=== PATIENT | male | born 1930 | race Caucasian/White ===

== ENCOUNTER 2016-10-02 13:00 | Inpatient (IN) | payer MEDICARE, BC ==
[~2016-10-02] VITALS: Ht 170.2 cm; Wt 75.5 kg
--- NOTE | ~2016-10-02 | OR ---
PATIENT'S NAME: RONALD LOPEZ [facility] AGE: 86 Y [address] ROOM: [place] [address] LOCATION: GPCU ADMIT DATE: 10/02/2016 OR/Procedure Report DISCHARGE DATE: 10/04/2016 FAMILY PHYSICIAN: LILLI RODRIGUEZ ATTENDING PHYSICIAN: Marcelo August SURGEON: Kareem Lauren MD BOXING INSTRUCTOR: DATE OF PROCEDURE: 10/02/2016 PROCEDURE: Left-sided thoracentesis. INDICATIONS FOR PROCEDURE: Left-sided pleural effusion. The risks and benefits of the procedure were discussed with the patient including risks of bleeding, infection, and pneumothorax. He agrees to proceed. DESCRIPTION OF PROCEDURE: After an informed consent, proper time-out was called by me and the nursing staff. The left chest ultrasound was done by me. The area for appropriate needle insertion was marked on the skin. After that, the area was prepped and draped in the usual fashion. The area was infiltrated with 1% lidocaine. After that, a 0.5 cm incision was made vertically in the skin. The thoracentesis needle was used to invade the pleural space. 700 mL of serosanguineous fluid were obtained. There were no immediate complications. The patient tolerated the procedure well. Chest x- ray postprocedure did not reveal any pneumothorax or acute complications. Thank you for allowing me to participate in the care of this patient. MD ARDEN WITT/logan /[id number] d: 10/28/[id number] t: 11/01/16 1813, OPERATIVE SUMMARY
--- NOTE | ~2016-10-02 | DS ---
PATIENT'S NAME: RONALD LOPEZ [facility] AGE: 86 Y [address] ROOM: [place] [address] LOCATION: GPCU ADMIT DATE: 10/02/2016 Discharge Summary DISCHARGE DATE: 10/04/2016 FAMILY PHYSICIAN: LILLI RODRIGUEZ ATTENDING PHYSICIAN: Marcelo August PRIMARY DIAGNOSES: 1. Left pleural effusion, malignant. 2. Acute hypoxic respiratory failure. 3. Essential hypertension. 4. Prostate cancer, status post radiation. 5. Osteoarthritis, generalized. OPERATIONS AND PROCEDURES: Left thoracentesis was performed by Dr. Lauren on 10/02/2016. HISTORY OF PRESENTING ILLNESS/REASON FOR ADMISSION: Please refer to the H and P dictated on 10/02/2016. HOSPITAL COURSE: The patient was admitted to the hospital as noted above with a presumptive diagnosis of left pleural effusion and acute hypoxic respiratory failure. He was seen and evaluated in coordination with Pulmonology, Dr. Lauren. It was recommended to undergo left thoracentesis. This was performed and pleural fluid was submitted for evaluation including cell count, cytology, and cultures. There was a clinical evidence for left lung consolidation. He did receive broad-spectrum antibiotic therapy. He did not demonstrate fever or any other stigmata of infection. He remained clinically stable and oxygen was eventually weaned off. He was tolerating a regular diet and ambulating in the room independently. By the third hospital day, pleural fluid cytology did reveal adenocarcinoma. Although there had been preparation for bronchoscopy, it was decided not to perform this but rather to seek Oncology evaluation. The patient was seen and evaluated by the oncologist here and recommended for outpatient followup. By the end of the day on 10/04/2016, it was felt he would be stable enough for discharge to home with plans for close clinical followup with his primary care provider as well as outpatient followup with Hematology/Oncology. DISCHARGE INSTRUCTIONS: Diet: Regular as tolerated. Activity: As tolerated. MEDICATIONS: PATIENT'S NAME: JESSICA [facility] AGE: 86 Y [address] ROOM: [place] [address] LOCATION: GPCU ADMIT DATE: 10/02/2016 Discharge Summary DISCHARGE DATE: 10/04/2016 FAMILY PHYSICIAN: LILLI RODRIGUEZ ATTENDING PHYSICIAN: Khalid,Robertson A 1. Losartan 100 mg p.o. daily. 2. Acetaminophen 650 mg p.o. q.6 hours p.r.n. 3. Advil PM 1 tablet p.o. q.h.s. p.r.n. 4. Salonpas gel, apply topically daily p.r.n. arthritis pain. FOLLOWUP: He will follow up with Hematology/Oncology in 5-7 days. Follow up with primary care provider, Lilli Rodriguez, in 3-5 days. CONDITION ON DISCHARGE: Fair. Total time spent on discharge process, 35 minutes. MD CLAUDE DURAN/logan /[id number] d: 10/06/16 0237 t: 10/17/16 1726, DISCHARGE SUMMARY
--- NOTE | ~2016-10-02 | CON ---
PATIENT'S NAME: RONALD BETHEA [facility] AGE: 86 Y [address] ROOM: [address] [place], [place] [address] LOCATION: GPCU ADMIT DATE: 10/02/2016 Consultation DISCHARGE DATE: 10/04/2016 FAMILY PHYSICIAN: LILLI RODRIGUEZ ATTENDING PHYSICIAN: Marcelo August DATE OF CONSULTATION: 10/04/2016 REFERRING PHYSICIAN: Kareem Lauren MD CHIEF COMPLAINT: Asked to evaluate patient with new diagnosis of adenocarcinoma, diagnosed from pleural fluid. HISTORY OF PRESENT ILLNESS: Ronald Bethea is an 86-year-old gentleman, who previously has been enjoying golf routinely up until approximately 3 to 4 weeks ago. At which point, he started decreasing his activities because he became more fatigued and short of breath, some chest pressure or tightness; and because this was prompted to be seen by his local physician, who performed a D-dimer, this was elevated and so a CT scan angiogram was performed on 09/19/2016, which did not demonstrate a pulmonary embolism, but did demonstrate a small to moderate left pleural effusion and possible adenopathy in the right hilar area, suggestion for outpatient pulmonary evaluation and bronchoscopy was considered, however, before that could occur the patient developed increasing shortness of breath, prompting evaluation and treatment and transferred to [facility] on 10/02/2016. At which time, a thoracentesis was performed with significant improvement in his breathing. He had been started on antibiotics and since the pathology has come back demonstrating malignancy consistent with adenocarcinoma. Currently, the patient is feeling well and wanted to the leave the hospital, and as he lives close to [place], [place], has considered being seen there for evaluation and treatment. He is not sure he wants therapy, but was open to hearing about the options available. The patient denies any significant complaints currently. No cough or phlegm production. No significant shortness of breath. Currently, his energy level is improved with the thoracentesis and he is looking forward to watching the [employer] game this evening and curious to what channel this would be on. He does live with his and together they have been maintaining and managing quite well. He has not had any fevers or chills. No GI symptoms. He has been eating and drinking well without significant weight loss. PAST MEDICAL HISTORY: Includes: 1. Osteoarthritis. 2. Hypertension. 3. Prostate cancer, diagnosed in 2007 status post radiation therapy for PATIENT'S NAME: RONALD BETHEA [facility] AGE: 86 Y [address] ROOM: [address] [place], [place] [address] LOCATION: GPCU ADMIT DATE: 10/02/2016 Consultation DISCHARGE DATE: 10/04/2016 FAMILY PHYSICIAN: LILLI RODRIGUEZ ATTENDING PHYSICIAN: Marcelo August that, had a PSA, has been well controlled since then by his report. 4. Carpal tunnel surgery in the past. 5. Cataract surgery in 2004. 6. He had a history DVT. 7. He had a degenerative disease of the knees. 8. He had hernia surgery in 1992. HOME MEDICATIONS: Include: 1. Losartan 5 mg daily. 2. Ibuprofen as needed. 3. Salonpas gel. SOCIAL HISTORY: The patient did smoke for 37 years, quit approximately 35 years ago. Does not drink significant alcohol. He is retired and lives with his at their home approximately 30 minutes from [place], [place]. FAMILY HISTORY: The patient has no cancer in the family. REVIEW OF SYSTEMS: Per history of present illness; otherwise, unremarkable or negative in detail. PHYSICAL EXAMINATION: GENERAL: The patient appears quite comfortable. No apparent distress. Conversant. Alert and oriented and accompanied by his . HEENT: Pupils were equal, round, reactive to light. Extraocular muscles are intact. Oral mucosa is pink without erythema and without lesions. It is dry. NECK: Without adenopathy as was the axillary region. HEART: Regular rate and rhythm without murmurs appreciated. LUNGS: Clear to auscultation without wheezing and without rhonchi. Good air movement in both lung singleton. ABDOMEN: Bowel sounds positive. Nontender. No organomegaly or masses appreciated. EXTREMITIES: Without cyanosis, clubbing, or edema. No rash. IMPRESSION AND PLAN: Ronald Bethea is an 86-year-old gentleman with a new diagnosis of adenocarcinoma, diagnosed from a thoracentesis with CT findings suggesting adenopathy; however, nothing otherwise suggested. Currently after the thoracentesis, he was feeling better and wishing to go home for consideration of ongoing evaluation and treatment as an outpatient near [place], [place]. 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 ROOM: [address] [place], [place] [address] LOCATION: GPCU ADMIT DATE: 10/02/2016 Consultation DISCHARGE DATE: 10/04/2016 FAMILY PHYSICIAN: LILLI RODRIGUEZ ATTENDING PHYSICIAN: Marcelo August A could include standard chemotherapy with a dose reduction or potentially immunotherapy or targeted therapy depending on further path review. I will ask to see if we have pleural fluid to send off for FoundationOne testing and PD-L1 testing, which may help with treatment considerations as there maybe a couple of easy options if his tumor would appear a certain way. If there is no fluid available to send out, then further testing could be considered, particularly as I expect he will need further thoracentesis in the future. It would be good at that time to send the FoundationOne testing and PD-L1 testing for not able to do it now. Additionally, I will arrange for a PET scan to further stage him completely, although this may not affect treatment strategies to help get a baseline for ongoing followup. Upon discharge, we will try to help establish care in [place], [place], so that the further evaluation and treatment discussion can occur, but I do expect that repeat thoracentesis may be needed. Even a PleurX catheter may be of benefit in the future. MD MAGDALENO DICKSON/logan /[id number] d: 10/06/16904 t: 10/19/16 1101, CONSULTATION REPORT
--- NOTE | ~2016-10-02 | ECHO ---
Transthoracic Echocardiography Report (TTE) Demographics Patient Name RONALD LOPEZ Date of Study 10/03/2016 Patient Number [id number] Visit Number [id number] Date of 1930 Room Number [address] Gender Male Number Age 86 year(s) Referring Mariangel Encarnacion Multigrapher Daniela Ferro, Physician RT,RVT,RDCS Physician Interpreting Silvia Murillo Routing Clerk Physician Sydnie MCCRACKEN Supervising Ordering Mariangel Encarnacion MD/MLP Physician MD Nurse Stress Inspector Fuel Hose Conclusions Contractility Score Summary Summary The estimated left ventricular ejection fraction is 45-50%. Moderate to severe concentric left ventricular hypertrophy. Inferior hypokinesis. Apical hypokinesis. There is mild to moderate aortic stenosis by the Continuity Equation. The peak velocity is 2.2 m/s, the mean gradient is 11 mmHg, and the valve area based on the continuity equation is 1.1 cm2, stroke volume index is 62 ml/m2. There is moderate pulmonary hypertension. The pulmonary pressure (RVSP) is 49 mmHg. Moderate tricuspid regurgitation . Small posterior pericardial effusion. The ascending aorta appears mildly dilated. The maximum diameter measures 4.0 cm. IVC is mildly dilated. Procedure Type of Study TTE procedure:2D Echocardiogram, M-Mode, Doppler , Color Doppler. Procedure Date Date: 10/03/2016 Start: 08:13 AM Study Location: Inpatient Portable Technical Quality: Adequate visualization Indications:Heart murmur. Additional Indications:Respiratory failure. Appropriate Use Criteria: 9 Patient Status: Routine HR: 59 bpm BP: 228/95 mmHg M-Mode/2D Measurements LV Diastolic Dimension: 4.04 cm LV Systolic Dimension: 2.7 cm LV Septum Diastolic: 1.59 cm LV PW Diastolic: 1.62 cm AO Root Dimension: 4 cm Cardiac Output: 3.64 l/min AV Cusp Separation: 0.7 cm RV Diastolic Dimension: 3.02 cm LA volume: 67 ml MV EPSS: 0.8 cm LVOT: 2.1 cm RV Base: 4 cm LVOT VTI: 17.8 cm RV Mid: 3.5 cm LV Stroke volume: 61.62 ml TAPSE: 2.3 cm Doppler Measurements AV Peak Velocity: 2.43 m/s MV Peak E-Wave: 0.73 m/s AV Peak Gradient: 23.62 mmHg MV Peak A-Wave: 0.79 m/s AV Mean Gradient: 11 mmHg MV E/A Ratio: 0.93 LVOT Peak Velocity: 0.75 m/s MV P1/2t: 98 msec TR Gradient:39.94 mmHg PV Peak Velocity: 0.87 m/s Estimated RAP:10 mmHg PV Peak Gradient: 3.01 mmHg Estimated RVSP: 50 mmHg Estimated PASP: 49.94 mmHg E' Septal Velocity: 0.08 m/s A' Septal Velocity: 0.12 m/s MV E/E' Ratio: 9.5 Findings Left Ventricle Moderate to severe concentric left ventricular hypertrophy. Inferior hypokinesis. Apical hypokinesis. Right Ventricle Normal right ventricle structure and function. Left Atrium The left atrium is mildly dilated by LA volume index measurement. Right Atrium The right atrium is mildly dilated. Mitral Valve Normal mitral valve structure and function. Aortic Valve There is mild to moderate aortic stenosis by the Continuity Equation. The peak velocity is 2.2 m/s, the mean gradient is 11 mmHg, and the valve area based on the continuity equation is 1.1 cm2, stroke volume index is 62 ml/m2. Tricuspid Valve There is moderate pulmonary hypertension. The pulmonary pressure (RVSP) is 49 mmHg. Moderate tricuspid regurgitation . Pulmonic Valve Normal pulmonic valve structure and function. Pericardial Effusion Small posterior pericardial effusion. Miscellaneous The ascending aorta appears mildly dilated. The maximum diameter measures 4.0 cm. IVC is mildly dilated. Pleural Effusion No evidence of pleural effusion. Signature dtt: Tim Vega dtd: 10/03/16 0813 Physician Self Edit
--- NOTE | ~2016-10-02 | HP ---
PATIENT'S NAME: JESSICA [facility] AGE: 86 Y [address] ROOM: [address] [address] [facility] ADMIT DATE: 10/02/2016 History & Physical DISCHARGE DATE: FAMILY PHYSICIAN: PHYSICIAN, UNKNOWN ATTENDING PHYSICIAN: LUCIEN COMER DATE OF SERVICE: CHIEF COMPLAINT: "Not feeling right." HISTORY OF PRESENT ILLNESS: An 86-year-old very pleasant, generally healthy gentleman with past medical history of hypertension, controlled with losartan at home, started feeling fatigued for past 2 weeks. He ended up in primary care physician's office with some vague chest pain and D-dimers were done, which resulted in getting a CTA of the chest at that point. CTA of the chest scan at that point showed no thromboembolic disease, [id number] left pleural effusion, and significant left lower lobe atelectasis and attenuation of the bronchi subtending to the left lower lobe, soft tissue attenuation suggesting adenopathy and probable right hilar adenopathy as well. Multinodular villus of the lungs with a nodularity of less than 1 cm, which does raise the concern for metastatic disease and they recommended bronchoscopy assessment. He later after 2 weeks ended up in the emergency department in [facility] with worsening of his symptoms in terms of fatigue and again chest x-ray was done, which did show left lower lobe consolidation as well as pleural effusion and was transferred here. On my encounter, he seems pretty comfortable. He is saying that he is just "ran out of energy." On specific inquiry, he denied having any shortness of breath, any cough, any sputum production, any chest pain, any palpitations, any headache, any dizziness, any trouble with the eyes, any decrease in appetite, any weight loss, any trouble with swallowing, any abdominal pain, any constipation, change in caliber of stools, any change in color of stools, any burning on urination, any extremity swelling. He further declined any PND, orthopnea, or dyspnea. REVIEW OF SYSTEMS: All other systems reviewed and were negative except as mentioned in the HPI. ALLERGIES: NO KNOWN DRUG ALLERGIES. PAST MEDICAL HISTORY: Osteoarthritis, hypertension, history of prostate cancer status post radiation. PATIENT'S NAME: JESSICA [facility] AGE: 86 Y [address] ROOM: [address] [address] LOCATION: GPCU ADMIT DATE: 10/02/2016 History & Physical DISCHARGE DATE: FAMILY PHYSICIAN: PHYSICIAN, UNKNOWN ATTENDING PHYSICIAN: LUCIEN COMER MEDICATIONS: 1. Aleve. 2. Losartan 25 mg once daily. SOCIAL HISTORY: Smoked for 37 years, one pack per day while in the [place]. He has not smoked for the last 35 years. Retired. Physical activity: Pretty good before last 2 weeks. FAMILY HISTORY: Family history is negative for any cancer, any hypertension, coronary artery disease, or stroke. PHYSICAL EXAMINATION: VITAL SIGNS: Blood pressure 180/97, 92, 94% on 2 L of oxygen, respiratory rate of 20. GENERAL: No acute distress, alert and oriented x3. HEENT: Head: Atraumatic, normocephalic. Eyes: Nonicteric. No pallor. Oropharynx: Moist mucous membranes. CARDIOVASCULAR: S1, S2, loud, systolic ejection murmur grade 3 x 6 radiating to the carotids. LUNGS: Left lower lobe crepitations with expiratory wheezes. ABDOMEN: Soft, nontender, nondistended. Bowel sounds are present. EXTREMITIES: No clubbing, cyanosis, or edema. PSYCH: Normal affect, mood, and speech. NEURO: Cranial nerves 2 through 12 intact. No motor or sensory deficit noted. LABORATORY DATA: Lab work from the outside facility were significant for white count of 12, hemoglobin of 13. Sodium 146, potassium 3.9, chloride 109, bicarb of 24, BUN 17, creatinine 0.9, glucose of 100. CAT scan of the chest, which was 2 weeks ago, per HPI. A chest x-ray done today showed left lower lobe consolidation as well as the left pleural effusion. Procalcitonin done was negative for sepsis. ABG done showed pH of 7.44, pCO2 of 37, PO2 of 68, saturating 94% on 2 L of oxygen. ASSESSMENT: 1. Acute hypoxic respiratory failure. 2. Left-sided pleural effusion. 3. Left lower lobe consolidation. 4. Hypertension. 5. Arthritis. 6. History of prostate cancer. PATIENT'S NAME: RONALD LOPEZ [facility] AGE: 86 Y [address] ROOM: [address] [address] LOCATION: GPCU ADMIT DATE: 10/02/2016 History & Physical DISCHARGE DATE: FAMILY PHYSICIAN: PHYSICIAN, UNKNOWN ATTENDING PHYSICIAN: LUCIEN COMER PLAN: We are going to treat him with supplemental oxygen at this point. Pulmonary consult has been requested. On ultrasonography on the bedside, it does show pleural effusion on the left side, will need to be tapped. Bronchoscopy evaluation per Pulmonary. We are going to get sputum cultures and sent the urine for urine Legionella as well as streptococcal antigen. It just could be community-acquired pneumonia, which got untreated, but he is surprisingly stable from that standpoint. We will obtain blood cultures as well. Obtain echocardiography with this cardiac murmur as well. We will leave the decision of starting antibiotics to the Pulmonary at this point. No DVT prophylaxis at this point except SCDs. N.p.o. midnight. MD HERMAN TEJEDA/logan /[id number] D: 047 T: 929 HISTORY & PHYSICAL
--- NOTE | ~2016-10-02 | CON ---
PATIENT'S NAME: [facility] AGE: 86 Y [address] ROOM: [place] [address] LOCATION: GPCU ADMIT DATE: 10/02/2016 Consultation DISCHARGE DATE: 10/04/2016 FAMILY PHYSICIAN: LILLI RODRIGUEZ ATTENDING PHYSICIAN: Marcelo August DATE OF CONSULTATION: 10/02/2016 REFERRING PHYSICIAN: Kareem Lauren MD REASON FOR CONSULTATION: Pleural effusion. HISTORY OF PRESENTING ILLNESS: This is an 86-year-old gentleman with a past medical history of hypertension controlled with losartan at home. He started feeling fatigued for the past 2 weeks, he ended up in the primary care physician's office with some vague chest pain, D-dimer were done, which resulted in getting a CT of the chest. CTA of the chest done at that point showed to be no thromboembolic disease. There is [id number] left pleural effusion and significant left lower lobe atelectasis and attenuation of the bronchi and a soft tissue attenuation suggesting adenopathy and probable right hilar adenopathy and possible mass. There is multiple nodules on the lung singleton, which is suspicious for malignancy. After 2 weeks, he ended up in the emergency department in [place] with worsening of his symptoms in terms of fatigue and chest x-ray which did show a left lower lobe consolidation as well as pleural effusion and was transferred to [facility]. The patient does have a history of prostate cancer. The patient denied any hemoptysis, pleurisy, he had denied any diarrhea, constipation, nausea, vomiting, or abdominal pain. REVIEW OF SYSTEMS: A 10-point review of system was done and otherwise negative other than mentioned in the history of presenting illness. ALLERGIES: NO KNOWN DRUG ALLERGIES. PAST MEDICAL HISTORY: Includes: 1. Osteoarthritis. 2. Hypertension. PATIENT'S NAME: [facility] AGE: 86 Y [address] ROOM: [place] [address] LOCATION: GPCU ADMIT DATE: 10/02/2016 Consultation DISCHARGE DATE: 10/04/2016 FAMILY PHYSICIAN: LILLI RODRIGUEZ ATTENDING PHYSICIAN: Marcelo August 3. History of prostate cancer, status post radiation. MEDICATIONS: 1. Aleve. 2. Losartan 5 mg once daily. SOCIAL HISTORY: The patient smoked for 37 years 1 pack per day. While in the [place], he has not smoked for the last 35 years. Retired. Physical activity pretty good before the last 2 weeks. FAMILY HISTORY: Negative for any cancer, hypertension, coronary artery disease, or stroke. PHYSICAL EXAMINATION: GENERAL: Upon initial evaluation, the patient was lying in bed, comfortable, does not appear in acute distress. HEENT: Eyes are nonicteric. Pupils are equal, reactive to light, and accommodation. HEENT: Normocephalic, atraumatic. Wet mucous membranes. Mallampati score is 2. NECK: Supple. No lymphadenopathy. No jugular venous distention. LUNGS: Left lower lobe crepitations with expiratory wheeze, there is dullness to percussion at the left hemithorax. ABDOMEN: Soft, nontender, no palpable organs. Positive bowel sounds. EXTREMITIES: No clubbing, cyanosis, or edema. NEURO: Cranial nerves 2 through 12 are intact. No motor or sensory deficit noted. LABORATORY DATA: At the time of evaluation, the lab from the outside facility were significant for white count of 12, hemoglobin of 13, his sodium was 146, potassium is 3.9, chloride 109, bicarbonate 24, BUN of 17, creatinine 0.9, and glucose of 100. CT scan of the chest which was 2 weeks ago per HPI, a chest x-ray done today showed left lower lobe consolidation as well as left pleural effusion. Procalcitonin was done was negative and not consistent with sepsis. ABG showed the pH 7.44, pCO2 of 27, pO2 of 68, and saturating 94% on 2 L. IMPRESSION: 1. Acute hypoxic respiratory failure. 2. Left-sided pleural effusion, possible left hilar adenopathy and possible mass. 3. Hypertension. RECOMMENDATION: PATIENT'S NAME: RONALD LOPEZ [facility] AGE: 86 Y [address] ROOM: [place] [address] LOCATION: GPCU ADMIT DATE: 10/02/2016 Consultation DISCHARGE DATE: 10/04/2016 FAMILY PHYSICIAN: LILLI RODRIGUEZ ATTENDING PHYSICIAN: Marcelo August At the current point, given the patient's lymphadenopathy and the left-sided pleural effusion, this could be secondary to malignancy; at the current point, we will proceed with thoracentesis, risks and benefits of the procedure were discussed with the patient. If the thoracentesis does not reveal any abnormalities then proceed with bronchoscopy and then the endobronchial ultrasound and transbronchial needle aspiration. 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 Thank you for allowing me to participate in the care of this patient. MD ARDEN WITT/logan /[id number] d: 10/29/16 0009 t: 11/01/16 1815, CONSULTATION REPORT
[2016-10-02] MEDS ORDERED: COZAAR25 MG PO (15:10)
[2016-10-02] MEDS ORDERED: ADVIL PM CAPLE1 EACH PO (15:10)
[2016-10-02] MEDS ORDERED: SALONPAS TOP (15:22)
[2016-10-02 15:52] LABS: BICARBONATE 25.1 mmol/L (18.0-23.0); PCO2 37 mmHg (35-45); PO2 68 mmHg (80-90)
--- NOTE | 2016-10-02 16:14 | NUR ---
86 Y/O MALE ADMITTED FOR RESP FAILURE & HYPOXIA. PT IS A&OX3. C/O FATIGUE, MYALGIA, WEAKNESS FOR THE PAST 3 WEEKS WITH SOB & DIZZINESS WELL EXACERBATION OF THE OTHER SYMPTOMS THE PAST 3-4 DAYS. [facility] MEDICAL & SURGICAL HISTORY - PROSTATE BIOPSY, PROSTATE CANCER W/ RADIATION IN 2007, NOCTURIA, BILAT CARPEL TUNNEL RELEASE, BILAT CATARACT, RT ING HERNIA REPAIR, RHINORRHEA, DJD, CHRONIC MICROVASCULAR ISCHEMIA, FORGETFUL, HYPERTENSION, FORMER SMOKER X37 YRS QUIT IN 1986, RT LEG PAINFUL & NUMB R/T RADIATION TRATMENT FROM PROSTATE CANCER. REPORT GIVEN TO PT PRIMARY CARE NURSE MARTY LUNA ADM EDUC DONE.
[2016-10-02 17:27] LABS: ALBUMIN 3.3 gm/dL (3.5-5.0); TOTAL BILIRUBIN 0.7 mg/dL (0.0-1.5)
--- NOTE | 2016-10-02 18:47 | NUR ---
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 LUNGS CLEAR WITH FINE CRACKLES TO BASES. PLACED ON 3L/NC WITH SATS MID-90'S AND IMPROVEMENT TO CYANOSIS. BP 200/100'S WITH LABATOLOL 10MG IVP GIVEN X1 AND HOME DOSE COZAAR GIVEN. SBP NOW 160'S. AFEBRILE. NSR RATES 90'S. NO C/O PAIN. SBA. VOIDS PER URINAL WITH COLLECTION SENT TO LAB. PIV TO L) AC WITH LR AT 100ML/HR X1 LITER. DR TALBERT CONSULT FOR PLEURAL EFFUSIONS WITH U/S CART AT BEDSIDE. PT/OT. ECHO FOR AORTIC MURMUR. LOW NA DIET. Follow up: AT BEDSIDE. CONT TO MONITOR PER PLAN OF CARE. LR X1 LITER. EXIT ALARMS ON D/T FORGETFULNESS, A/O X3.
[2016-10-02 19:53] LABS: ALBUMIN 3.3 gm/dL (3.5-5.0); ALK PHOS 136 IU/L (33-138); ALT 19 IU/L (12-78); ANION GAP 15.2 (10.0-19.0); AST 25 IU/L (10-40); BLOOD UREA NITROGEN 18 mg/dL (6-24); CALCIUM 9.4 mg/dL (8.5-10.5); CHLORIDE 114 mMol/L (96-110); CO2 24 mMol/L (22-32); CREATININE 0.9 mg/dL (0.6-1.3); ESTIMATED GFR (MDRD EQUATION) > 60; POTASSIUM 4.2 mMol/L (3.7-5.1); TOTAL BILIRUBIN 0.7 mg/dL (0.0-1.5); TOTAL PROTEIN 6.9 g/dL (6.0-8.4)
[2016-10-02 19:56] LABS: SODIUM 149 mMol/L (135-145)
[2016-10-03 03:40] LABS: BASOPHIL # 0.1 K/uL (0.0-0.2); BASOPHIL % 0.6 %; EOSINOPHIL # 0.2 K/uL (0.0-0.5); EOSINOPHIL % 1.6 %; HEMATOCRIT 36.7 % (33.0-50.0); HEMOGLOBIN 11.4 g/dL (11.0-16.0); IMMATURE GRANULOCYTE # 0.1 K/uL (0.0-0.3); IMMATURE GRANULOCYTE % 0.8 %; LYMPHOCYTE # 0.9 K/uL (0.8-4.0); MCH 27.7 pg (27.0-34.0); MCHC 31.1 gm/dL (32.0-36.5); MCV 89.1 fl (83.0-98.0); MONOCYTE # 0.4 K/uL (0.0-1.0); MONOCYTE % 4.3 %; MPV 10.3 fl (9.4-12.4); NEUTROPHIL # (ANC) 7.9 K/uL (1.4-9.0); NEUTROPHIL % 83.7 %; NRBC % 0 /100WBC (0-0.00); PLATELET COUNT 125 K/uL (150-450); RBC 4.12 M/uL (3.50-5.50); RDW-CV 16.9 % (11.9-14.6); WBC 9.5 K/uL (4.0-11.0)
[2016-10-03 03:53] LABS: ANION GAP 10.8 (10.0-19.0); BLOOD UREA NITROGEN 17 mg/dL (6-24); CALCIUM 8.9 mg/dL (8.5-10.5); CHLORIDE 113 mMol/L (96-110); CO2 26 mMol/L (22-32); CREATININE 0.8 mg/dL (0.6-1.3); ESTIMATED GFR (MDRD EQUATION) > 60; POTASSIUM 3.8 mMol/L (3.7-5.1)
[2016-10-03 03:57] LABS: SODIUM 146 mMol/L (135-145)
--- NOTE | 2016-10-03 05:34 | NUR ---
Significant Event: PATIENT A/O X 3, COOPERATIVE WITH CARES. AT 1830 DR TALBERT TAPPED L)LUNG-700ML, FLUID SENT TO LAB. VSS. HR:80'S, BP:150-170/70'S, 2-3L SATS >90%. DENIES PAIN OVERNIGHT. BEDSIDE. PATIENT RESTS OFF AND ON OVERNIGHT. UP WITH 1ASSIST TO BATHROOM. Follow up: CONTINUE PER PLAN OF CARE.
--- NOTE | 2016-10-03 15:45 | NUR ---
Introduced self and role of care management to patient and his . They live in [place], [place]. He plans home when ready for discharge. He does not use a walker or cane at home and is not on O2 at home. says he usually golfs every afternoon and has not golfed for several weeks. He says he went for a walk in [place]. They talk about the fluid he had removed from his lungs today. says he may need a bronchoscopy. Will follow.
--- NOTE | 2016-10-03 16:59 | NUR ---
Significant Event: INITIAL BP 228/95 WITH LABETALOL 20MG IVP GIVEN AND AM DOSE OF LOSARTAN. SBP DOWN TO 130-160'S. LOSARTAN DOSE INCREASED TO 50MG QDAY WITH ADD'L 25MG GIVEN. PRN HYDRALAZINE AVAILABLE FOR SBP >180. HEPARIN SUBQ INITIATED AND LEVAQUIN IV Q24HRS. PIV TO L) CONRAD SL'D. PATIENT A/O X3 BUT FORGETFUL. WALKED IN [place] WITH THERAPY SBA. VOIDS SMALL AMOUNT PER URINAL. NO BM TODAY. PULMONOLOGY STILL TO SEE TODAY. POSSIBLE BRONCH IN AM. O2 DEMAND DECREASED FROM 2L DOWN TO 1L WITH SATS >90%. CLEAR/DIM LUNG SOUNDS. Follow up: MONITOR PER PLAN OF CARE. EXIT ALARMS ON AT ALL TIMES. LABS IN AM.
--- NOTE | 2016-10-04 05:06 | NUR ---
Significant Event:A/Ox3, forgetful at times and will pull off tele/oxygen VSS on 2L/NC to maintain sats >90%. SBA with transfers. at the bedside, not much help at night. Bed and Chair alarms at all times. NPO since midnight for a possible bronch if results from cytology come back. Follow up:Possible discharge today?? Continue with POC.
[2016-10-04 06:04] LABS: BASOPHIL % 0.4 %; EOSINOPHIL # 0.1 K/uL (0.0-0.5); EOSINOPHIL % 1.3 %; HEMATOCRIT 37.5 % (33.0-50.0); HEMOGLOBIN 11.8 g/dL (11.0-16.0); IMMATURE GRANULOCYTE # 0.1 K/uL (0.0-0.3); IMMATURE GRANULOCYTE % 0.7 %; LYMPHOCYTE # 0.9 K/uL (0.8-4.0); LYMPHOCYTE % 8.2 %; MCH 27.6 pg (27.0-34.0); MCHC 31.5 gm/dL (32.0-36.5); MCV 87.8 fl (83.0-98.0); MONOCYTE # 0.6 K/uL (0.0-1.0); MONOCYTE % 5.6 %; MPV 10.2 fl (9.4-12.4); NEUTROPHIL % 83.8 %; NRBC % 0 /100WBC (0-0.00); PLATELET COUNT 144 K/uL (150-450); RBC 4.27 M/uL (3.50-5.50); RDW-CV 16.8 % (11.9-14.6); WBC 10.7 K/uL (4.0-11.0)
[2016-10-04 06:21] LABS: BLOOD UREA NITROGEN 14 mg/dL (6-24); CHLORIDE 109 mMol/L (96-110); CO2 25 mMol/L (22-32); CREATININE 0.9 mg/dL (0.6-1.3); ESTIMATED GFR (MDRD EQUATION) > 60; PHOSPHORUS 3.2 mg/dL (2.5-4.9); SODIUM 143 mMol/L (135-145)
[2016-10-04] MEDS ORDERED: COZAAR100 MG PO (18:57)
--- NOTE | 2016-10-09 11:26 | NUR ---
Post hospitalization follow up call made to patient. Patient reports he is "doing ok". does not have any questions regarding his follow up appointments or medications. Reports that he had "fine treatment" while he was hospitalized.
== END 2016-10-04 19:00 | disposition disaster alternative care site (69) | DRG 180 ==
LOC: GPCU 14:32
PROVIDERS: Family Medicine; Internal Medicine Critical Care Medicine; ADMIT Internal Medicine
PROC: 0W9B3ZX Drainage of Left Pleural Cavity, Percutaneous Approach, Diagnostic (ICD-10-PCS; principal; 2016-10-02)
DX: C78.2 Secondary malignant neoplasm of pleura (principal); J96.01 Acute respiratory failure with hypoxia; J91.0 Malignant pleural effusion; I10 Essential (primary) hypertension; M19.90 Unspecified osteoarthritis, unspecified site; Z85.46 Personal history of malignant neoplasm of prostate; Z87.891 Personal history of nicotine dependence; Z86.718 Personal history of other venous thrombosis and embolism; Z92.3 Personal history of irradiation
CPT/HCPCS: J1644; J1956; J7050; J7120